=== PATIENT | male | born 2000 | race Caucasian/White ===

== ENCOUNTER 2022-03-06 20:04 | Emergency (ER) | payer BC ==
[2022-03-06] MEDS ORDERED: Ondansetron PF 4 MG/2 ML Vial ONE (21:48)
== END 2022-03-06 22:11 | disposition home or self-care (01) ==
LOC: ERS 20:04
DX: S82.451A Displaced comminuted fracture of shaft of right fibula, initial encounter for closed fracture (principal); W10.8XXA Fall (on) (from) other stairs and steps, initial encounter; Y93.79 Activity, other specified sports and athletics; F17.290 Nicotine dependence, other tobacco product, uncomplicated
CPT/HCPCS: 36415; 80307; 96374; J2405